=== PATIENT | female | born 1940 | race Caucasian/White ===

== ENCOUNTER 2024-05-28 09:24 | Emergency (ER) | payer MEDICARE, SELFPAY ==
[2024-05-28 09:26] VITALS: BP 139/82
--- NOTE | 2024-05-28 10:56 | ED.GENMED ---
History of Present Illness
General
Chief Complaint: Musculo-Skeletal Complaint
Source: patient
Exam Limitations: none
Time Seen by Provider: 05/28/24 10:52
History of Present Illness
History of Present Illness:
See MDM
Past History
Past History
ED Past Medical History: None
ED Past Surgical History: Cholecystectomy
Social History
Tobacco: Non-smoker
Alcohol: None
Phy Exam
Physical Exam
Physical Exam:
See MDM
Course
Orders/Labs/Results
Orders:
Orders
05/28/24 09:32
Ankle, Right 3 view CR [CR Ankle - Right Min 3 Views *] Urgent
Comment:
Reason For Exam: swelling, pain
Vital Signs
Initial and Last Documented VS:
Initial Vital Signs
Temp Pulse Resp BP Pulse Ox
97.8 F 91 22 139/82 95
05/28/24 09:26 05/28/24 09:26 05/28/24 09:26 05/28/24 09:26 05/28/24 09:26
Last Documented Vital Signs
Temp Pulse Resp BP Pulse Ox
97.8 F 91 22 139/82 95
05/28/24 09:26 05/28/24 09:26 05/28/24 09:26 05/28/24 09:26 05/28/24 09:26
MDM/Problems Addressed
Differential Diagnosis Includes:
HPI and MDM Narrative:
84-year-old female presenting with right ankle pain. She twisted a few days ago and went to make sure it was not broken. She denies trouble walking. She denies numbness or tingling. She denies skin changes.
Physical exam
General: Well appearing and non-toxic
HEENT: protecting airway
Neck: appears supple
CV: No evidence of cyanosis
Resp: No accessory muscle use
Abd: Non-distended
Extremities: Mild tenderness to right lateral malleolus. Distal extremity otherwise neurovascularly intact. No skin changes
Neuro: alert
Psych: Normal affect
Skin: Intact
Problems Addressed including Acute and Chronic Conditions affecting care:
1. Right ankle sprain
Acuity: acute
Prognosis: stable
Details: X-ray negative for fracture. Patient feels comfortable going home and declined pain medicine
Differential Diagnosis (but not limited to): Ankle fracture, ankle sprain
Testing considered: Uric acid level
Drug therapy (if applicable): OTC meds, please see d/c instruction regarding Rx drugs
Amount and/or Complexity of Data Reviewed
Clinical info obtained from: Patient
External data reviewed: N/A
Labs I independently reviewed (but not limited to): N/A
Radiology: X-ray independently reviewed: Ankle x-ray negative for fracture
Pulse Ox: not hypoxic
EKG independently reviewed: N/A
Nut Blanker Operator: N/A
Critical Care: N/A
Risk of Complication:
Social Determinants of health: Good social support
Discussed with other providers: N/A
Escalation of Care includes Admit/Obs: After being observed in the Emergency Department, pt stable for discharge.
Occasional wrong word or 'sound a like' substitutions may have occurred due to the inherent limitations of voice recognition software. Read the chart carefully and recognize, using context, where substitutions have occurred.
*Critical Care Note
Total Time (30-74mins, 75-104mins- exclusive of procedures): Not Applicable
ED Attending Note
-
Portions of this chart may have been created with voice recognition software.� Occasional wrong word or��sound alike� substitutions may have occurred due to the inherent limitations of voice recognition software.
Discharge Plan
Departure
Patient Disposition: Home (Routine Discharge)
Date of Disposition: 05/28/24
Time of Disposition: 10:57
Patient with high blood pressure during this ER visit?: No
Discharge Problem:
Mild ankle sprain
Instructions: Ankle Sprain ED
Activity Restrictions/Additional Instructions:
Please return for any worsening symptoms.
You may return at any time if you have further concerns.
Please follow up with your doctor at the first available appointment, preferably this week.
Thank you for choosing [facility].
Interventions
Interventions:
ED-Musculoskeletal Assessment Last Done: 05/28/24 11:02
Discharge Date and Time
Print Language: [place]
== END 2024-05-28 11:19 | disposition home or self-care (01) ==
LOC: EMR 09:24
PROVIDERS: EMERGENCY PHYSICIAN Student in an Organized Health Care Education/Training Program; FAMILY PHYSICIAN Nurse Practitioner Family
DX: S93.401A Sprain of unspecified ligament of right ankle, initial encounter (principal); X50.1XXA Overexertion from prolonged static or awkward postures, initial encounter; Z90.49 Acquired absence of other specified parts of digestive tract
CPT/HCPCS: 99283; 73610

== ENCOUNTER 2025-03-22 09:25 | Emergency (ER) | payer MEDICARE, SELFPAY ==
[2025-03-22 09:32] VITALS: BP 131/79
[2025-03-22 14:04] LABS: % Basophils 0.5 % (0-2); % Eosinophils 0.1 % (0-6); % Immature Granulocytes 0.5 % (0-0.5); % Lymphocytes 15.6 % (20.5-51.1); % Monocytes 5.7 % (1.7-9.3); % Neutrophils 77.6 % (42.2-75.2); Absolute Lymphocytes 1.3 10^3/uL (1.2-3.4); Absolute Monocytes 0.5 10^3/uL (0.1-0.6); Absolute Neutrophils 6.6 10^3/uL (1.4-6.5); Hematocrit 41.2 % (37.0-47.0); Hemoglobin 13.7 g/dL (12.0-16.0); Mean Corp Hgb Conc. 33.3 g/dL (33.0-37.0); Mean Corpuscular Hgb 30.5 pg (27.0-31.0); Mean Corpuscular Volume 91.8 fL (81.0-99.0); Mean Platelet Volume 9.5 fL (7.4-10.4); Nucleated Red Blood Cells % 0 %; Platelet Count 295 10^3/uL (130-400); Red Blood Cell Count 4.49 10^6/uL (4.20-5.40); Red Cell Dist. Width 14.7 % (11.5-14.5); White Blood Cell Count 8.5 10^3/uL (4.8-10.8)
[2025-03-22 14:36] LABS: Urine Albumin Negative (Neg - Trace); Urine Bilirubin Negative (Negative); Urine Character Clear (Clear); Urine Color Yellow; Urine Glucose Negative (Negative); Urine Ketone 2+ (Negative); Urine Leukocyte 3+ (Negative); Urine Nitrite Negative (Negative); Urine Occult Blood 1+ (Negative); Urine Urobilinogen Negative (Neg - 1+)
[2025-03-22 14:49] LABS: ALT (SGPT) 13 U/L (0-35); AST (SGOT) 19 U/L (14-36); Albumin 4.1 g/dl (3.5-5.0); Alkaline Phosphatase 83 U/L (38-126); Blood Urea Nitrogen 11 mg/dl (7-17); Calcium 9.2 mg/dl (8.4-10.2); Carbon Dioxide 25 mmol/L (22-30); Chloride 109 mmol/L (98-107); Glucose 96 mg/dl (70-99); Potassium 4.3 mmol/L (3.5-5.1); Sodium 143 mmol/L (135-145); Total Protein 7.5 g/dl (6.3-8.2); eGFR > 60.00
--- NOTE | 2025-03-22 14:50 | ED.GENMED ---
History of Present Illness
General
Chief Complaint: Fall
Source: patient and family (son at bedside)
Exam Limitations: none
Time Seen by Provider: 03/22/25 12:48
Nursing documentation reviewed up to this point in time: agreed with
History of Present Illness
History of Present Illness:
85 yo female with hypothyroid hx, states she was standing in her driveway ready to walk towards her son when next thing she knew she was on the ground.
Had a piece of cake for breakfast.
She has had 'sniffles' past couple days and son states when he got her up her nose was dripping with clear discharge
Son at bedside states she reached for the car side view mirror then 'just went down.' There were mere seconds of LOC
Pt denies headache, neck pain, or feeling lightheaded prior to fall.
Small cut on parietal scalp, denies headache, neck pain, CP, SOB, abdominal pain. Denies n/v/d/c. Feels 100% back to normal
Past History
Past History
ED Past Medical History: Hypothyroidism
ED Past Surgical History: Cholecystectomy
Social History
Tobacco: Non-smoker
Alcohol: Occasional
Personal:
Living: with family
Review of Systems
Review of Systems
Allergies reviewed?: Yes
All Other Systems: ROS reviewed and negative except as documented in HPI and ROS
Constitutional: Denies fever
Respiratory: Denies trouble breathing
Cardiac: Reports syncope; Denies chest pain, diaphoresis or palpitations
ABD/GI: Denies abdominal pain, nausea, vomiting, diarrhea, bloody stools or black stools
: Denies dysuria, frequency or difficulty voiding
Musculoskeletal: Reports no symptoms
Skin: Reports other (small cut back of head)
Neurological: Reports no symptoms
Phy Exam
Physical Exam
Physical Exam:
GENERAL: No acute distress. A&Ox3.
CONSTITUTIONAL: Afebrile.
Head: 5 mm superficial cut left parietal area, mild local swelling. No active bleeding
EYES: clear, conjunctivae normal
ENMT: moist mucus membranes, Pharynx nl
RESPIRATORY: Regular respirations, nonlabored, lungs clear.
CARDIOVASCULAR: Regular rate and rhythm, no murmurs, no rubs.
GI: Soft, nontender, normal BS
MUSCULOSKELETAL: Moves with ease. Well perfused.
SKIN: Warm, dry, pink
PSYCH: Normal mood and affect. Well kept, interactive and appropriate
NEUROLOGIC: Awake, alert and oriented. Speech clear. Cranial nerves II through XII intact. No focal neurological deficits
Course
Orders/Labs/Results
Orders:
Orders
03/22/25 12:54
CT Head W/o Iv Contrast Urgent
Comment:
Reason For Exam: fall, struck back of head, syncope
03/22/25 13:54
Complete Blood Count/With Diff Urgent
Comprehensive Metabolic Panel Urgent
TSH Reflex To Free T4 Urgent
Comment: ADD ON
Urinalysis Reflex To Culture Urgent
Date Specimen was Collected: 03/22/25
Time Specimen was Collected: 13:37
Urine Microscopic Reflex Cult Urgent
Urine Culture Urgent
TRISTIAN Source: U
Specimen Description:
Date Specimen was Collected: 03/22/25
Time Specimen was Collected: 13:37
03/22/25 14:56
Electrocardiogram (*1) Urgent
Reason for Study: Syncope
EKG- Treatment ONCE
03/22/25 14:58
Add On- LAB Urgent
Tests Added?: TSH reflex T4
Abnormal Lab Results
03/22/25
13:54
RDW 14.7 H %
(11.5-14.5)
Absolute Neuts (auto) 6.6 H 10^3/uL
(1.4-6.5)
Neutrophils % 77.6 H %
(42.2-75.2)
Lymphocytes % 15.6 L %
(20.5-51.1)
Chloride 109 H mmol/L
(98-107)
Urine Ketones 2+ A
(Negative)
Ur Occult Blood Reflex 1+ A
(Negative)
Leukocyte Esterase Rfl 3+ A
(Negative)
Urine RBC 3-6 A /HPF
(0-2)
03/22/25 13:54
03/22/25 13:54
Vital Signs
Initial and Last Documented VS:
Initial Vital Signs
Temp Pulse Resp BP Pulse Ox
97.4 F 71 18 131/79 98
03/22/25 09:32 03/22/25 09:32 03/22/25 09:32 03/22/25 09:32 03/22/25 09:32
Last Documented Vital Signs
Temp Pulse Resp BP Pulse Ox
97.4 F 77 20 142/82 95
03/22/25 09:32 03/22/25 15:41 03/22/25 15:41 03/22/25 15:41 03/22/25 15:41
MDM/Problems Addressed
Differential Diagnosis Includes:
UTI, dehydration, hypoglycemia, vaso vagal episode, dysrhythmia
MDM/Problems Addressed:
85 yo female with hypothyroid hx, states she was standing in her driveway ready to walk towards her son when next thing she knew she was on the ground.
Had a piece of cake for breakfast.
She has had 'sniffles' past couple days and son states when he got her up her nose was dripping with clear discharge
Son at bedside states she reached for the car side view mirror then 'just went down.' There were mere seconds of LOC
Pt denies headache, neck pain, or feeling lightheaded prior to fall.
Small cut on parietal scalp, denies headache, neck pain, CP, SOB, abdominal pain. Denies n/v/d/c. Feels 100% back to normal
2:30 PM:
EKG: NSR
CBC Normal
CMP normal
UA: no infection
Pt OOB and ambulating well, stable for discharge
*Pulse Oximetry
SaO2: 98
Oxygen Mode of Delivery: Room air
Patient hypoxic: not evaluated
*EKG
EKG Intrepretation Date: 03/22/25
Interpretation: normal
Heart Rate: 79
Rate: normal
Rhythm: sinus
[place]: normal axis
Interval: normal interval
QRS Pattern: normal QRS
Ischemia: no ischemia
*Critical Care Note
Total Time (30-74mins, 75-104mins- exclusive of procedures): Not Applicable
ED Attending Note
-
Portions of this chart may have been created with voice recognition software.� Occasional wrong word or��sound alike� substitutions may have occurred due to the inherent limitations of voice recognition software.
Discharge Plan
Departure
Patient Disposition: Home (Routine Discharge)
Date of Disposition: 03/22/25
Time of Disposition: 15:29
Patient with high blood pressure during this ER visit?: No
Condition: Good
Discharge Problem:
Episode of syncope
Instructions: Syncope (fainting), Head Injury in Adults (DC), Skin Abrasions (DC)
Referrals:
Nicole Arzate [employer] [Family Provider] - Call in 1-3 days for appt
Activity Restrictions/Additional Instructions:
As we discussed, but nothing worrisome in your workup here today.
Your head CT shows nothing worrisome
Drink plenty of fluids, stay cool
Interventions
Interventions:
*Nursing Disposition Last Done: 03/22/25 15:50
ED-Musculoskeletal Assessment Last Done: 03/22/25 15:49
ED- Neurological Assessment Last Done: 03/22/25 15:49
ED-Skin Assessment Last Done: 03/22/25 15:49
Discharge Date and Time
Discharge Date/Time: 03/22/25 15:51
Print Language: YI
[2025-03-22 15:06] LABS: Urine Squamous Cell >30 /LPF (Few)
[2025-03-22 15:07] LABS: Urine Amorphous Seen
[2025-03-22 15:41] VITALS: BP 142/82
[2025-03-22 18:58] LABS: TSH Reflex To Free T4 1.31 uIU/ml (0.47-4.68)
== END 2025-03-22 15:51 | disposition home or self-care (01) ==
LOC: EMR 09:25
PROVIDERS: Registered Nurse; EMERGENCY PHYSICIAN Emergency Medicine; FAMILY PHYSICIAN Nurse Practitioner Family
DX: R55 Syncope and collapse (principal); E03.9 Hypothyroidism, unspecified; Z90.49 Acquired absence of other specified parts of digestive tract
CPT/HCPCS: 99284; 70450; 80053; 81003; 81015; 84443; 85025; 87086; 93005

== ENCOUNTER → 2025-07-20 08:17 | Outpatient (REF) | payer MEDICARE, OTHER, SELFPAY | LOC: HWRAD 08:17 | PROVIDERS: ATTENDING PHYSICIAN Nurse Practitioner Family | DX: R91.1 Solitary pulmonary nodule (principal); J47.9 Bronchiectasis, uncomplicated | CPT/HCPCS: 71250 ==